=== PATIENT | female | born 1990 | race Caucasian/White ===

== ENCOUNTER 2017-01-10 23:46 | Emergency (ER) | payer OTHER ==
[~2017-01-10] VITALS: Ht 167.6 cm; Wt 94.3 kg
[~2017-01-10 23:46] MED LIST: ADVIL100 MG PO; ANAPROX DS550 MG PO; BACTRIM DS 8001 TA1 PO; CIPROFLOXACIN500 MG PO; CYCLOBENZAPRINE10 MG PO; ELIMITE5% TP; FIORICET 325 MG1 TAB PO; Fioricet 325 MG1 TAB PO; KEFLEX500 MG PO; MOTRIN800 MG PO; NKHM PO; PREDNICOT20 MG PO; PREDNISONE10 MG PO; PYRIDIUM200 M1 PO; ULTRAM50 MG PO; ZOFRAN4 MG PO
[2017-01-10 23:52] VITALS: BP 132/74
[2017-01-10] MEDS ORDERED: CLARITIN10 MG PO (23:53)
[2017-01-10] MEDS ORDERED: DEBLITANE0.35 MG PO (23:54)
[2017-01-10] MEDS ORDERED: VENLAFAXINE H37.5 M1 PO (23:54)
[2017-01-11] MEDS ORDERED: CEPHALEXIN500 M1 PO (00:08)
[2017-01-11] MEDS ORDERED: LIDEX 0.05% CRE15 GM T (00:08)
== END 2017-01-11 00:25 | disposition home or self-care (01) ==
LOC: ED 23:46
DX: T63.441A Toxic effect of venom of bees, accidental (unintentional), initial encounter (principal); M79.89 Other specified soft tissue disorders; Z88.1 Allergy status to other antibiotic agents; Z79.899 Other long term (current) drug therapy; Y92.9 Unspecified place or not applicable

== ENCOUNTER 2017-12-20 13:46 | Emergency (ER) | payer SELFPAY ==
[~2017-12-20] VITALS: Wt 90.7 kg
[~2017-12-20 13:46] MED LIST changes: +CEPHALEXIN500 M1 PO; +CLARITIN10 MG PO; +DEBLITANE0.35 MG PO; +LIDEX 0.05% CRE15 GM T; +VENLAFAXINE H37.5 M1 PO
[2017-12-20 14:13] LABS: EOS % 0.1 % (1.0-4.0); HEMATOCRIT 39.9 % (37.0-47.0); HEMOGLOBIN 13.7 g/dl (12.0-16.0); LYMPH # 1.8 10*3/uL (1.3-4.4); LYMPH % 18.4 % (27.0-41.0); MEAN CELL VOLUME 79.5 fl (81.0-99.0); MEAN CORPUSCULAR HGB 27.3 pg (27.0-31.0); MEAN CORPUSCULAR HGB CONC 34.3 g/dl (33.0-37.0); MEAN PLATELET VOLUME 8.8 fl (9.6-12.3); MONO # 0.5 10*3/uL (0.1-1.0); MONO % 5.1 % (3.0-9.0); NEUT # 7.3 10*3/uL (2.3-7.9); PLATELET COUNT AUTOMATED 250 10*3/uL (130-400); RED BLOOD COUNT 5.02 10*6/uL (4.10-5.10); WHITE BLOOD COUNT 9.6 10*3/uL (4.8-10.8)
[2017-12-20 14:28] LABS: ALBUMIN 4.2 gm/dl (3.1-4.5); ALKALINE PHOSPHATASE 88 U/L (45-117); BUN 17 mg/dl (7-24); CHLORIDE 109 mmol/L (98-107); CREATININE 1.18 mg/dL (0.55-1.02); LIPASE 90 U/L (73-393); POTASSIUM 3.7 mmol/L (3.5-5.1); SGOT/AST 10 IU/L (3-35); SGPT/ALT 23 U/L (12-78); SODIUM 141 mmol/L (136-145); TOTAL PROTEIN 7.4 gm/dL (6.4-8.2)
[2017-12-20 14:30] LABS: B-hCG (QUALITATIVE) NEGATIVE (NEGATIVE)
[2017-12-20 14:49] LABS: BILIRUBIN NEGATIVE (NEGATIVE); BLOOD 1+ (NEGATIVE); CLARITY SL CLOUDY (CLEAR); COLOR YELLOW (YELLOW); EPITHELIAL CELLS 15-20; GLUCOSE NEGATIVE (NEGATIVE); KETONE NEGATIVE (NEGATIVE); LEUKO ESTERASE NEGATIVE (NEGATIVE); NITRITE NEGATIVE (NEGATIVE); PH 6.5 (5.0-9.0); RBC 16-20 rbc/hpf (0-2); UROBILINOGEN 0.2 E.U./dl (0.2-1.0); WBC 0-2 wbc/hpf (0-5)
[2017-12-20 14:50] LABS: BACTERIA TRACE
[2017-12-20 15:16] VITALS: BP 118/64
[2017-12-20] MEDS ORDERED: FLOMAX0.4 MG PO (15:38)
[2017-12-20] MEDS ORDERED: ZOFRAN ODT4 MG SL (15:38)
[2017-12-20] MEDS ORDERED: NAPROSYN500 MG PO (15:38)
[2017-12-20] MEDS ORDERED: TYLENOL325 M1 PO (15:38)
[2017-12-20] MEDS ORDERED: PERCOCET 5-3251 EACH PO (15:39)
== END 2017-12-20 15:47 | disposition home or self-care (01) ==
LOC: ED 13:46
PROVIDERS: Emergency Medicine
DX: N23 Unspecified renal colic (principal); N20.0 Calculus of kidney; F41.9 Anxiety disorder, unspecified; F32.9 Major depressive disorder, single episode, unspecified; Z88.1 Allergy status to other antibiotic agents; Z79.899 Other long term (current) drug therapy

== ENCOUNTER 2018-06-18 20:17 | Emergency (ER) | payer SELFPAY ==
[~2018-06-18] VITALS: Ht 167.6 cm; Wt 93.0 kg
[~2018-06-18 20:17] MED LIST changes: +FLOMAX0.4 MG PO; +NAPROSYN500 MG PO; +PERCOCET 5-3251 EACH PO; +TYLENOL325 M1 PO; +ZOFRAN ODT4 MG SL
[2018-06-18 20:22] VITALS: BP 136/75
[2018-06-18] MEDS ORDERED: CEPHALEXIN500 M1 PO (20:38)
[2018-06-18] MEDS ORDERED: ANTIBIOTIC28.4 GM T (20:39)
== END 2018-06-18 20:52 | disposition home or self-care (01) ==
LOC: ED 20:17
DX: L03.012 Cellulitis of left finger (principal); Z88.1 Allergy status to other antibiotic agents; Z79.899 Other long term (current) drug therapy

== ENCOUNTER 2018-07-22 14:35 | Emergency (ER) | payer SELFPAY ==
[~2018-07-22] VITALS: Ht 167.6 cm; Wt 93.0 kg
[~2018-07-22 14:35] MED LIST changes: +ANTIBIOTIC28.4 GM T
[2018-07-22 14:38] VITALS: BP 118/73
== END 2018-07-22 16:35 | disposition home or self-care (01) ==
LOC: ED 14:35
DX: M25.511 Pain in right shoulder (principal); Z88.1 Allergy status to other antibiotic agents; Z79.899 Other long term (current) drug therapy; X50.0XXA Overexertion from strenuous movement or load, initial encounter; Y93.89 Activity, other specified; Y92.69 Other specified industrial and construction area as the place of occurrence of the external cause; Y99.0 Civilian activity done for income or pay

== ENCOUNTER → 2018-08-29 | Outpatient (CLI) | payer OTHER | END | disposition home or self-care (01) | LOC: ORTHO 01:37 | DX: M25.511 Pain in right shoulder (principal); R20.0 Anesthesia of skin; R20.2 Paresthesia of skin ==

== ENCOUNTER → 2020-03-17 | Outpatient (CLI) | payer OTHER ==
[2020-03-17 12:30] LABS: BASO # 0.1 10*3/uL (0.0-0.1); BASO % 0.7 % (0.0-1.0); EOS # 0.3 10*3/uL (0.0-0.4); EOS % 3.5 % (1.0-4.0); HEMATOCRIT 33.8 % (37.0-47.0); LYMPH # 1.4 10*3/uL (1.3-4.4); LYMPH % 17.3 % (27.0-41.0); MEAN CELL VOLUME 74.1 fl (81.0-99.0); MEAN CORPUSCULAR HGB 21.7 pg (27.0-31.0); MEAN CORPUSCULAR HGB CONC 29.3 g/dl (33.0-37.0); MEAN PLATELET VOLUME 9.5 fl (9.6-12.3); MONO # 0.3 10*3/uL (0.1-1.0); MONO % 3.7 % (3.0-9.0); NEUT # 6.2 10*3/uL (2.3-7.9); NEUT % 74.4 % (47.0-73.0); PLATELET COUNT AUTOMATED 310 10*3/uL (130-400); RED BLOOD COUNT 4.56 10*6/uL (4.10-5.10); RED CELL DISTRI WIDTH 16.3 % (0-14.5); RETICULOCYTE % 0.99 % (0.50-2.50); WHITE BLOOD COUNT 8.3 10*3/uL (4.8-10.8)
[2020-03-17 12:37] LABS: CLARITY CLEAR (CLEAR); COLOR YELLOW (YELLOW)
[2020-03-17 12:38] LABS: BILIRUBIN NEGATIVE; BLOOD NEGATIVE (NEGATIVE); GLUCOSE NEGATIVE; KETONE NEGATIVE; LEUKO ESTERASE 1+ (NEGATIVE); NITRITE NEGATIVE (NEGATIVE); PH 5.5 (4.5-8.0); UROBILINOGEN 0.2 E.U./dl (0.0-1.0)
[2020-03-17 12:40] LABS: BACTERIA 3+; EPITHELIAL CELLS 16-20
[2020-03-17 12:54] LABS: ALBUMIN 3.3 gm/dl (3.1-4.5); ALKALINE PHOSPHATASE 77 U/L (45-117); BUN 16 mg/dl (7-24); CHLORIDE 111 mmol/L (98-107); CHOLESTEROL 184 mg/dL (<200); GAMMA GLUTAMYL TRANSPEPTIDASE 5 U/L (5-55); HDL CHOLESTEROL 73 mg/dl (40-60); LDL CHOLESTEROL 94 mg/dL (9-159); POTASSIUM 3.9 mmol/L (3.5-5.1); SGOT/AST 9 IU/L (3-35); SODIUM 142 mmol/L (136-145); TOTAL PROTEIN 6.6 gm/dL (6.4-8.2); TRIGLYCERIDES 83 mg/dl (<150); VLDL CHOLESTEROL 17 mg/dL (6-40)
[2020-03-17 13:01] LABS: CREATININE 0.74 mg/dL (0.55-1.02); IRON 22 ug/dL (50-170); SGPT/ALT 17 U/L (12-78); THYROID STIM HORMONE (HS) 0.951 uIU/ml (0.358-4.75); TOTAL IRON BINDING CAPACITY 520 ug/dl (250-450); URIC ACID 2.6 mg/dL (2.6-6.0)
[2020-03-17 13:30] LABS: FERRITIN 1.7 ng/mL (10.0-291.0); VITAMIN D, 25-HYDROXY 37.4 ng/mL (30-100)
[2020-03-18 08:07] LABS: RHEUMATOID ARTHRITIS FACTOR <10.0 IU/mL (0.0-13.9)
[2020-03-18 15:09] LABS: ANTI-DSDNA ANTIBODIES <1 IU/mL (0-9)
== END | disposition home or self-care (01) ==
LOC: LAB 11:51
PROVIDERS: ATTEND Family Medicine
DX: E55.9 Vitamin D deficiency, unspecified (principal); R79.89 Other specified abnormal findings of blood chemistry; R53.83 Other fatigue; R78.5 Finding of other psychotropic drug in blood; R74.8 Abnormal levels of other serum enzymes

== ENCOUNTER → 2020-05-13 | Outpatient (CLI) | payer OTHER | END | disposition home or self-care (01) | LOC: COVID19 13:53 | PROVIDERS: ATTEND Family Medicine | DX: Z20.828 Contact with and (suspected) exposure to other viral communicable diseases (principal) ==

== ENCOUNTER → 2020-05-23 | Outpatient (CLI) | payer OTHER ==
[2020-05-23 10:52] LABS: BASO # 0.1 10*3/uL (0.0-0.1); BASO % 0.7 % (0.0-1.0); EOS # 0.3 10*3/uL (0.0-0.4); EOS % 3.8 % (1.0-4.0); HEMATOCRIT 36.5 % (37.0-47.0); LYMPH # 1.6 10*3/uL (1.3-4.4); LYMPH % 22.8 % (27.0-41.0); MEAN CELL VOLUME 72.9 fl (81.0-99.0); MEAN CORPUSCULAR HGB 21.8 pg (27.0-31.0); MEAN CORPUSCULAR HGB CONC 29.9 g/dl (33.0-37.0); MEAN PLATELET VOLUME 9.2 fl (9.6-12.3); MONO # 0.3 10*3/uL (0.1-1.0); NEUT # 4.7 10*3/uL (2.3-7.9); NEUT % 68.4 % (47.0-73.0); PLATELET COUNT AUTOMATED 275 10*3/uL (130-400); RED BLOOD COUNT 5.01 10*6/uL (4.10-5.10); RED CELL DISTRI WIDTH 16.5 % (0-14.5); WHITE BLOOD COUNT 6.9 10*3/uL (4.8-10.8)
[2020-05-23 10:52] LABS: BILIRUBIN Negative (Negative); BLOOD Negative (Negative); CLARITY Clear (Clear); COLOR Yellow (Yellow); GLUCOSE Negative (Negative); KETONE Negative (Negative); LEUKO ESTERASE Negative (Negative); NITRITE Negative (Negative); SPECIFIC GRAVITY <= 1.005 (1.001-1.030); UROBILINOGEN 0.2 E.U./dl (0.0-1.0)
[2020-05-23 11:17] LABS: BACTERIA 2+
[2020-05-23 11:26] LABS: ALBUMIN 3.3 gm/dl (3.1-4.5); ALKALINE PHOSPHATASE 71 U/L (45-117); BUN 15 mg/dl (7-24); CHLORIDE 109 mmol/L (98-107); CREATININE 0.72 mg/dL (0.55-1.02); POTASSIUM 3.9 mmol/L (3.5-5.1); SGOT/AST 9 IU/L (3-35); SGPT/ALT 14 U/L (12-78); SODIUM 139 mmol/L (136-145); TOTAL PROTEIN 6.9 gm/dL (6.4-8.2)
[2020-05-24 07:06] LABS: COMPLEMENT C4 11 mg/dL (12-38); HEP B CORE AB, IGM Negative (Negative); HEPATITIS B SURFACE AG Negative (Negative); HEPATITIS C VIRUS ANTIBODY <0.1 s/co (0.0-0.9)
[2020-05-24 13:09] LABS: ANTI-DSDNA ANTIBODIES <1 IU/mL (0-9); ANTI-RNP ANTIBODIES <0.2 AI (0.0-0.9); SJOGREN ANTI-SS-A <0.2 AI (0.0-0.9); SJOREN AB, ANTI-SS-B <0.2 AI (0.0-0.9)
[2020-05-24 15:07] LABS: ANTICARDIOLIPIN AB, IGG, QN <9 GPL U/mL (0-14); ANTICARDIOLIPIN AB, IGM, QN 24 MPL U/mL (0-12); CARDIOLIPIN AB IGA <9 APL U/mL (0-11)
[2020-05-25 00:06] LABS: CCP ANTIBODIES IGG/IGA 5 units (0-19)
== END | disposition home or self-care (01) ==
LOC: LAB 10:19
PROVIDERS: ATTEND Specialist
DX: R76.8 Other specified abnormal immunological findings in serum (principal)

== ENCOUNTER → 2020-10-11 | Outpatient (CLI) | payer OTHER ==
[~2020-10-11] MED LIST changes: +IBUPROFEN600 MG PO; +ROBAXIN-750750 MG PO
[2020-10-11 11:18] LABS: BASO # 0.1 10*3/uL (0.0-0.1); BASO % 0.6 % (0.0-1.0); BILIRUBIN Negative (Negative); BLOOD Trace-Intact (Negative); CLARITY Clear (Clear); COLOR Yellow (Yellow); EOS # 0.3 10*3/uL (0.0-0.4); EOS % 3.2 % (1.0-4.0); GLUCOSE Negative (Negative); HEMATOCRIT 43.8 % (37.0-47.0); KETONE Trace (Negative); LEUKO ESTERASE Trace (Negative); LYMPH # 2.2 10*3/uL (1.3-4.4); LYMPH % 26.1 % (27.0-41.0); MEAN CELL VOLUME 81.3 fl (81.0-99.0); MEAN CORPUSCULAR HGB 26.5 pg (27.0-31.0); MEAN CORPUSCULAR HGB CONC 32.6 g/dl (33.0-37.0); MEAN PLATELET VOLUME 9.1 fl (9.6-12.3); MONO # 0.3 10*3/uL (0.1-1.0); MONO % 3.8 % (3.0-9.0); NEUT # 5.6 10*3/uL (2.3-7.9); NEUT % 66.2 % (47.0-73.0); NITRITE Negative (Negative); PLATELET COUNT AUTOMATED 284 10*3/uL (130-400); RED BLOOD COUNT 5.39 10*6/uL (4.10-5.10); RED CELL DISTRI WIDTH 15.7 % (0-14.5); WHITE BLOOD COUNT 8.5 10*3/uL (4.8-10.8)
[2020-10-11 11:30] LABS: BACTERIA TRACE; EPITHELIAL CELLS 16-20; MUCOUS 2+; WBC 0-2 wbc/hpf (0-5)
[2020-10-11 11:51] LABS: ALBUMIN 3.5 gm/dl (3.1-4.5); ALKALINE PHOSPHATASE 62 U/L (45-117); BUN 10 mg/dl (7-24); CHLORIDE 109 mmol/L (98-107); CREATININE 0.86 mg/dL (0.55-1.02); POTASSIUM 3.9 mmol/L (3.5-5.1); SGOT/AST 13 IU/L (3-35); SGPT/ALT 29 U/L (12-78); SODIUM 137 mmol/L (136-145)
[2020-10-12 05:06] LABS: COMPLEMENT C4 14 mg/dL (12-38)
[2020-10-12 15:07] LABS: ANTI-DSDNA ANTIBODIES 1 IU/mL (0-9); ANTI-RNP ANTIBODIES <0.2 AI (0.0-0.9); SJOGREN ANTI-SS-A <0.2 AI (0.0-0.9); SJOREN AB, ANTI-SS-B <0.2 AI (0.0-0.9)
== END | disposition home or self-care (01) ==
LOC: LAB 10:36
PROVIDERS: ATTEND Specialist
DX: M12.9 Arthropathy, unspecified (principal)

== ENCOUNTER 2020-10-20 16:25 | Emergency (ER) | payer OTHER ==
[~2020-10-20] VITALS: Ht 167.6 cm; Wt 850.9 kg
[~2020-10-20 16:25] MED LIST changes: -IBUPROFEN600 MG PO; -ROBAXIN-750750 MG PO
[2020-10-20 16:35] VITALS: BP 130/73
[2020-10-20] MEDS ORDERED: ROBAXIN-750750 MG PO (19:11)
[2020-10-20] MEDS ORDERED: IBUPROFEN600 MG PO (19:11)
== END 2020-10-20 19:27 | disposition home or self-care (01) ==
LOC: ED 16:25
DX: S43.401A Unspecified sprain of right shoulder joint, initial encounter (principal); F41.9 Anxiety disorder, unspecified; F32.9 Major depressive disorder, single episode, unspecified; J45.909 Unspecified asthma, uncomplicated; Z88.8 Allergy status to other drugs, medicaments and biological substances; Z79.899 Other long term (current) drug therapy; X58.XXXA Exposure to other specified factors, initial encounter; Y93.89 Activity, other specified; Y92.89 Other specified places as the place of occurrence of the external cause; Y99.8 Other external cause status

== ENCOUNTER 2020-12-12 20:47 | Emergency (ER) | payer OTHER ==
[~2020-12-12] VITALS: Ht 167.6 cm; Wt 81.6 kg
[~2020-12-12 20:47] MED LIST changes: +IBUPROFEN600 MG PO; +ROBAXIN-750750 MG PO
[2020-12-12 20:51] VITALS: BP 110/68
[2020-12-12] MEDS ORDERED: SILVADENE,SSD C50 GM T (21:56)
== END 2020-12-12 22:20 | disposition home or self-care (01) ==
LOC: ED 20:47
DX: T24.102A Burn of first degree of unspecified site of left lower limb, except ankle and foot, initial encounter (principal); T24.101A Burn of first degree of unspecified site of right lower limb, except ankle and foot, initial encounter; X08.8XXA Exposure to other specified smoke, fire and flames, initial encounter; Y93.89 Activity, other specified; Y92.89 Other specified places as the place of occurrence of the external cause; Y99.8 Other external cause status

== ENCOUNTER → 2021-03-22 | Outpatient (CLI) | payer OTHER ==
[~2021-03-22] MED LIST changes: +SILVADENE,SSD C50 GM T
== END | disposition home or self-care (01) ==
LOC: COVID19 16:37
PROVIDERS: ATTEND Internal Medicine
DX: Z11.52 Encounter for screening for COVID-19 (principal)

== ENCOUNTER → 2021-06-16 | Outpatient (CLI) | payer OTHER | END | disposition home or self-care (01) | LOC: COVID19 16:59 | PROVIDERS: ATTEND Podiatrist Foot & Ankle Surgery | DX: Z11.52 Encounter for screening for COVID-19 (principal) ==

== ENCOUNTER → 2021-07-10 | Outpatient (CLI) | payer OTHER | END | disposition home or self-care (01) | LOC: COVID19 17:20 | PROVIDERS: ATTEND Internal Medicine | DX: Z20.822 Contact with and (suspected) exposure to COVID-19 (principal) ==

== ENCOUNTER → 2021-08-08 | Outpatient (CLI) | payer OTHER | END | disposition home or self-care (01) | LOC: RAD 12:05 | PROVIDERS: ATTEND Family Medicine | DX: M54.2 Cervicalgia (principal); G89.29 Other chronic pain; M54.50 Low back pain, unspecified ==

== ENCOUNTER → 2021-11-29 | Outpatient (CLI) | payer OTHER | END | disposition home or self-care (01) | LOC: RAD 12:42 | PROVIDERS: ATTEND Family Medicine | DX: M19.011 Primary osteoarthritis, right shoulder (principal) ==

== ENCOUNTER → 2022-01-01 | Outpatient (CLI) | payer OTHER | END | disposition home or self-care (01) | LOC: MRI 09:25 | PROVIDERS: ATTEND Family Medicine | DX: M75.51 Bursitis of right shoulder (principal); M19.011 Primary osteoarthritis, right shoulder ==

== ENCOUNTER 2022-03-26 16:05 | Emergency (ER) | payer OTHER ==
[~2022-03-26] VITALS: Ht 167.6 cm; Wt 77.6 kg
[2022-03-26 16:08] VITALS: BP 128/61
== END 2022-03-26 17:48 | disposition home or self-care (01) ==
LOC: ED 16:05
DX: S09.90XA Unspecified injury of head, initial encounter (principal); Z88.1 Allergy status to other antibiotic agents; Z79.899 Other long term (current) drug therapy; W17.89XA Other fall from one level to another, initial encounter; Y93.89 Activity, other specified; Y92.89 Other specified places as the place of occurrence of the external cause; Y99.8 Other external cause status

== ENCOUNTER → 2022-06-07 | Outpatient (CLI) | payer OTHER | END | disposition home or self-care (01) | LOC: MRI 09:00 | PROVIDERS: ATTEND Family Medicine | DX: S13.4XXD Sprain of ligaments of cervical spine, subsequent encounter (principal); M50.30 Other cervical disc degeneration, unspecified cervical region; X58.XXXD Exposure to other specified factors, subsequent encounter ==

== ENCOUNTER → 2022-10-17 | Outpatient (CLI) | payer OTHER | END | disposition home or self-care (01) | LOC: MRI 01:03 | PROVIDERS: ATTEND Family Medicine | DX: R51.9 Headache, unspecified (principal); J34.89 Other specified disorders of nose and nasal sinuses ==

== ENCOUNTER 2023-07-11 16:38 | Emergency (ER) | payer OTHER ==
[~2023-07-11] VITALS: Wt 78.0 kg
[2023-07-11 17:30] VITALS: BP 115/74
[2023-07-11 18:28] LABS: BASO # 0.1 10*3/uL (0.0-0.1); BASO % 0.5 % (0.0-1.0); EOS # 0.2 10*3/uL (0.0-0.4); EOS % 2.4 % (1.0-4.0); HEMATOCRIT 44.6 % (37.0-47.0); LYMPH # 1.5 10*3/uL (1.3-4.4); LYMPH % 16.5 % (27.0-41.0); MEAN CORPUSCULAR HGB 28.8 pg (27.0-31.0); MEAN CORPUSCULAR HGB CONC 33.9 g/dl (33.0-37.0); MEAN PLATELET VOLUME 9.1 fl (9.6-12.3); MONO # 0.4 10*3/uL (0.1-1.0); MONO % 4.4 % (3.0-9.0); NEUT # 7.1 10*3/uL (2.3-7.9); PLATELET COUNT AUTOMATED 230 10*3/uL (130-400); RED BLOOD COUNT 5.25 10*6/uL (4.10-5.10); WHITE BLOOD COUNT 9.3 10*3/uL (4.8-10.8)
[2023-07-11 18:40] LABS: ACT PARTIAL THROMBO TIME 29.6 SECONDS (20.0-32.1)
[2023-07-11 18:52] LABS: ALKALINE PHOSPHATASE 61 U/L (46-116); BUN 12 mg/dl (9-23); CHLORIDE 109 mmol/L (98-107); LIPASE 34 U/L (12-53); POTASSIUM 3.8 mmol/L (3.4-5.1); SGPT/ALT 10 U/L (5-49); TOTAL PROTEIN 6.9 gm/dL (6.0-8.0)
[2023-07-11 18:53] LABS: BETA-HCG, QUANT < 3.0 mIU/mL (3-10)
[2023-07-11 18:57] LABS: BILIRUBIN Negative (Negative); BLOOD 3+ (Negative); CLARITY Cloudy (Clear); COLOR Yellow (Yellow); GLUCOSE Negative (Negative); KETONE Trace (Negative); LEUKO ESTERASE Trace (Negative); NITRITE Negative (Negative); PH 5.5 (4.5-8.0); SPECIFIC GRAVITY >= 1.030 (1.001-1.030)
[2023-07-11 19:12] LABS: BACTERIA 4+; EPITHELIAL CELLS 16-20; RBC 41-50 rbc/hpf (0-2); WBC 41-50 wbc/hpf (0-5)
[2023-07-11] MEDS ORDERED: SEPTDS PO (20:40)
[2023-07-11] MEDS ORDERED: MELOXICAM15 MG PO (20:40)
== END 2023-07-11 21:04 | disposition home or self-care (01) ==
LOC: ED 16:38
PROVIDERS: Emergency Medicine
DX: N39.0 Urinary tract infection, site not specified (principal); N20.0 Calculus of kidney; J45.909 Unspecified asthma, uncomplicated; R10.2 Pelvic and perineal pain; F32.A Depression, unspecified; F41.9 Anxiety disorder, unspecified; Z88.1 Allergy status to other antibiotic agents

== ENCOUNTER → 2023-07-30 | Outpatient (CLI) | payer OTHER ==
[~2023-07-30] MED LIST changes: +MELOXICAM15 MG PO; +SEPTDS PO
== END | disposition home or self-care (01) ==
LOC: US 01:34
PROVIDERS: ATTEND Family Medicine
DX: N13.2 Hydronephrosis with renal and ureteral calculous obstruction (principal); R10.84 Generalized abdominal pain; Z97.5 Presence of (intrauterine) contraceptive device

== ENCOUNTER → 2023-08-23 | Outpatient (CLI) | payer OTHER ==
[~2023-08-23] MED LIST changes: +IOHEXOL 300 MG/ML 100 ML VIAL IV ONE
== END | disposition home or self-care (01) ==
LOC: CT 00:21
PROVIDERS: ATTEND Family Medicine
DX: K42.9 Umbilical hernia without obstruction or gangrene (principal); K59.00 Constipation, unspecified; Z98.890 Other specified postprocedural states

== ENCOUNTER → 2023-08-30 | Outpatient (CLI) | payer OTHER ==
[~2023-08-30] MED LIST changes: -IOHEXOL 300 MG/ML 100 ML VIAL IV ONE; +SINCALIDE 1.6 MCG in SODIUM CHLORIDE 0.9% 50 ML IV ONE
== END | disposition home or self-care (01) ==
LOC: NM 08-15 07:00
PROVIDERS: ATTEND Family Medicine
DX: R10.84 Generalized abdominal pain (principal)

== ENCOUNTER → 2024-03-23 | Outpatient (CLI) | payer OTHER ==
[~2024-03-23] MED LIST changes: -SINCALIDE 1.6 MCG in SODIUM CHLORIDE 0.9% 50 ML IV ONE
== END | disposition home or self-care (01) ==
LOC: RAD 12:51
PROVIDERS: ATTEND Family Medicine
DX: M25.571 Pain in right ankle and joints of right foot (principal); M77.8 Other enthesopathies, not elsewhere classified

== ENCOUNTER 2024-03-26 14:47 | Emergency (ER) | payer OTHER ==
[~2024-03-26] VITALS: Wt 82.6 kg
[2024-03-26] MEDS ORDERED: Ondansetron Hydrochloride 4 MG/2 ML VIAL IV ONE (16:00)
[2024-03-26] MEDS ORDERED: SODIUM CHLORIDE 0.9% 1,000 ML IV ONE (16:00)
[2024-03-26] MEDS ORDERED: Ketorolac Tromethamine 30 MG/ML VIAL IV ONE (16:00)
[2024-03-26 16:05] LABS: BASO % 0.6 % (0.0-1.0); EOS # 0.2 10*3/uL (0.0-0.4); EOS % 2.7 % (1.0-4.0); HEMATOCRIT 43.2 % (37.0-47.0); LYMPH # 1.7 10*3/uL (1.3-4.4); LYMPH % 25.9 % (27.0-41.0); MEAN CELL VOLUME 86.6 fl (81.0-99.0); MEAN CORPUSCULAR HGB 28.9 pg (27.0-31.0); MEAN CORPUSCULAR HGB CONC 33.3 g/dl (33.0-37.0); MEAN PLATELET VOLUME 8.7 fl (9.6-12.3); MONO # 0.3 10*3/uL (0.1-1.0); MONO % 5.1 % (3.0-9.0); NEUT # 4.2 10*3/uL (2.3-7.9); NEUT % 65.5 % (47.0-73.0); PLATELET COUNT AUTOMATED 212 10*3/uL (130-400); RED BLOOD COUNT 4.99 10*6/uL (4.10-5.10); WHITE BLOOD COUNT 6.4 10*3/uL (4.8-10.8)
[2024-03-26] MEDS ORDERED: IOHEXOL 300 MG/ML 100 ML VIAL IV ONE (16:10)
[2024-03-26 16:25] LABS: BILIRUBIN Negative (Negative); BLOOD Negative (Negative); CLARITY Clear (Clear); COLOR Yellow (Yellow); GLUCOSE Negative (Negative); KETONE Negative (Negative); LEUKO ESTERASE Negative (Negative); NITRITE Negative (Negative); PH 5.5 (4.5-8.0); UROBILINOGEN 0.2 E.U./dl (0.0-1.0)
[2024-03-26 16:32] LABS: BACTERIA 1+
[2024-03-26 16:33] LABS: ALKALINE PHOSPHATASE 53 U/L (46-116); BUN 8 mg/dl (9-23); CHLORIDE 106 mmol/L (98-107); LIPASE 34 U/L (12-53); POTASSIUM 3.9 mmol/L (3.4-5.1); SGPT/ALT 13 U/L (5-49); TOTAL PROTEIN 6.8 gm/dL (6.0-8.0)
[2024-03-26 18:18] VITALS: BP 104/61
[2024-03-26] MEDS ORDERED: Ondansetron4 MG PO (18:34)
[2024-03-26] MEDS ORDERED: Ondansetron Hydrochloride 4 MG TAB PO ONE (18:35)
== END 2024-03-26 18:34 | disposition home or self-care (01) ==
LOC: ED 14:47
PROVIDERS: Physician Assistant Medical
DX: K29.70 Gastritis, unspecified, without bleeding (principal); E80.6 Other disorders of bilirubin metabolism; R11.0 Nausea; J45.909 Unspecified asthma, uncomplicated; F32.A Depression, unspecified; F41.9 Anxiety disorder, unspecified; Z88.1 Allergy status to other antibiotic agents

== ENCOUNTER → 2024-03-31 | Outpatient (CLI) | payer OTHER ==
[~2024-03-31] MED LIST changes: +Ondansetron4 MG PO
== END | disposition home or self-care (01) ==
LOC: RAD 13:14
PROVIDERS: ATTEND Family Medicine
DX: R06.02 Shortness of breath (principal); J45.909 Unspecified asthma, uncomplicated

== ENCOUNTER → 2024-06-02 | Outpatient (CLI) | payer OTHER | END | disposition home or self-care (01) | LOC: LAB 12:46 | PROVIDERS: ATTEND Specialist | DX: J30.89 Other allergic rhinitis (principal); J30.1 Allergic rhinitis due to pollen; J45.30 Mild persistent asthma, uncomplicated; Z91.011 Allergy to milk products ==

== ENCOUNTER → 2024-07-21 | Outpatient (CLI) | payer OTHER ==
[2024-07-21 12:12] LABS: ALKALINE PHOSPHATASE 60 U/L (46-116); BUN 13 mg/dl (9-23); CHLORIDE 107 mmol/L (98-107); POTASSIUM 4.1 mmol/L (3.4-5.1); SGPT/ALT 21 U/L (5-49)
[2024-07-21 12:19] LABS: LDH 140 U/L (120-246)
== END | disposition home or self-care (01) ==
LOC: LAB 10:33
PROVIDERS: ATTEND Nurse Practitioner Family
DX: R17 Unspecified jaundice (principal)

== ENCOUNTER → 2024-08-05 | Outpatient (CLI) | payer OTHER | END | disposition home or self-care (01) | LOC: RAD 11:20 | PROVIDERS: ATTEND Family Medicine | DX: M41.84 Other forms of scoliosis, thoracic region (principal); M54.2 Cervicalgia ==